=== PATIENT | female | born 1995 | race Caucasian/White ===

== ENCOUNTER 2018-09-17 16:14 | Emergency (ER) | payer OTHER ==
[2018-09-17] MEDS ORDERED: ONDANSETRON DISINTEGRATING 4 MG TAB PO ONE (16:20)
[2018-09-17] MEDS ORDERED: NS 1,000 ML IV ONE (16:40)
--- NOTE | 2018-09-17 16:40 | EDPHY ---
H & P Stated Complaint: n/v abd pain Time Seen by Provider: 09/17/18 16:40 HPI/ROS: CHIEF COMPLAINT: Vomiting, abdominal pain HISTORY OF PRESENT ILLNESS: The patient presents the ED with 1 day history of vomiting and abdominal pain. The patient's symptoms began when she woke up today. She did report drinking heavily last night. The patient does have a history of type 2 diabetes and takes glipizide. The patient denies prior history of abdominal pathology. She denies any hematemesis or melena. She reports associated bilious vomiting. She complains of associated generalized abdominal pain which she characterizes as severe in nature. The patient denies any additional acute complaints of fever, cough or congestion. She has no acute neurologic complaints. She denies skin rash. REVIEW OF SYSTEMS: A comprehensive 10 point review of systems is otherwise negative aside from elements mentioned in the history of present illness. Source: Patient - Personal History LMP (Females 10-55): Now Current Tetanus Diphtheria and Acellular Pertussis (TDAP): Unsure - Medical/Surgical History Hx Asthma: No Hx Chronic Respiratory Disease: No Hx Diabetes: No Hx Cardiac Disease: No Hx Renal Disease: No Hx Cirrhosis: No Hx Alcoholism: No Hx HIV/AIDS: No Hx Splenectomy or Spleen Trauma: No Other PMH: denies - Social History Smoking Status: Never smoked - Physical Exam Exam: General Appearance: Thin female, retching, appears uncomfortable Eyes: Pupils equal and round no pallor or injection ENT, Mouth: Mucous membranes moist Respiratory: There are no retractions, lungs are clear to auscultation Cardiovascular: Regular rate and rhythm Gastrointestinal: Generalized abdominal tenderness, poorly localized, no peritoneal signs, normal bowel sounds Neurological: 5/5 strength noted all 4 extremities Skin: Warm and dry, no rashes Musculoskeletal: Neck is supple nontender Extremities: symmetrical, full range of motion Psychiatric: Patient is oriented X 3, there is no agitation Constitutional: Initial Vital Signs Temperature (C) 36.3 C 09/17/18 16:17 Heart Rate 99 09/17/18 16:17 Respiratory Rate 22 H 09/17/18 16:17 Blood Pressure 115/69 09/17/18 16:17 O2 Sat (%) 100 09/17/18 16:17 O2 Delivery Mode Room Air Allergies/Adverse Reactions: amoxicillin Allergy (Verified 09/17/18 16:16) Home Medications: Medication Instructions Recorded MIRENA 09/17/18 Medical Decision Making - Diagnostics Imaging Results: Imaging Impressions Abdomen CT 09/17/18 18:26 Impression: Normal CT abdomen and pelvis. No evidence for appendicitis. Findings discussed with Jose Miguel Abdullahi M.D. at 19:43 hour, 09/17/2018. ED Course/Re-evaluation: The patient presents the ED with acute abdominal pain and intractable vomiting. This appears to be precipitated by heavy alcohol consumption last night. The patient arrived and was noted to have tenderness to palpation which was vague. Workup in the emergency department consisted of a CBC which demonstrates a leukocytosis of 16,000. The patient's metabolic panel is within normal limits. The patient's lipase is normal. The patient was treated with IV Zofran and Ativan. She received normal saline. Patient continued to have pain and was treated with IV narcotics. I re-evaluated the patient and found ongoing abdominal tenderness which seems to be localized to the right lower quadrant. For this reason a CT scan of the abdomen pelvis was ordered. 8:00 p.m.: CT scan of the abdomen and pelvis was reviewed by myself and discussed with radiologist Dr. Lora. No evidence of a intra-abdominal process noted. I re-evaluated the patient at 8:30 a.m. She is feeling much better at this point time. She is tolerating p.o. without vomiting. I do feel that she can be discharged home with a prescription for Zofran. She is advised to return to the ED for markedly worsening pain or other concerns. Differential Diagnosis: Differential diagnosis considered includes alcoholic gastritis, gastroenteritis , pancreatitis, appendicitis, perforation, obstruction - Data Points Laboratory Results: Laboratory Results 09/17/18 17:00 09/17/18 17:00 09/17/18 09/17/18 09/17/18 17:00 17:00 17:00 WBC 16.88 10^3/uL H 10^3/uL (3.80-9.50) RBC 5.15 10^6/uL 10^6/uL (4.18-5.33) Hgb 15.3 g/dL g/dL (12.6-16.3) Hct 44.3 % % (38.0-47.0) MCV 86.0 fL fL (81.5-99.8) MCH 29.7 pg pg (27.9-34.1) MCHC 34.5 g/dL g/dL (32.4-36.7) RDW 12.2 % % (11.5-15.2) Plt Count 399 10^3/uL 10^3/uL (150-400) MPV 8.8 fL fL (8.7-11.7) Neut % (Auto) 90.8 % H % (39.3-74.2) Lymph % (Auto) 6.4 % L % (15.0-45.0) [place] % (Auto) 2.1 % L % (4.5-13.0) Eos % (Auto) 0.0 % L % (0.6-7.6) Baso % (Auto) 0.2 % L % (0.3-1.7) Nucleat RBC Rel Count 0.0 % % (0.0-0.2) Absolute Neuts (auto) 15.32 10^3/uL H 10^3/uL (1.70-6.50) Absolute Lymphs (auto) 1.08 10^3/uL 10^3/uL (1.00-3.00) Absolute Monos (auto) 0.36 10^3/uL 10^3/uL (0.30-0.80) Absolute Eos (auto) 0.00 10^3/uL L 10^3/uL (0.03-0.40) Absolute Basos (auto) 0.04 10^3/uL 10^3/uL (0.02-0.10) Absolute Nucleated RBC 0.00 10^3/uL 10^3/uL (0-0.01) Immature Gran % 0.5 % % (0.0-1.1) Immature Gran # 0.08 10^3/uL 10^3/uL (0.00-0.10) Sodium 139 mEq/L mEq/L (135-145) Potassium 4.0 mEq/L mEq/L (3.5-5.2) Chloride 104 mEq/L mEq/L (97-110) Carbon Dioxide 16 mEq/l L mEq/l (22-31) Anion Gap 19 mEq/L H mEq/L (6-14) BUN 15 mg/dL mg/dL (7-23) Creatinine 0.7 mg/dL mg/dL (0.6-1.0) Estimated GFR > 60 Glucose 178 mg/dL H mg/dL (70-100) Calcium 9.8 mg/dL mg/dL (8.5-10.4) Total Bilirubin 1.0 mg/dL mg/dL (0.1-1.4) Conjugated Bilirubin 0.4 mg/dL mg/dL (0.0-0.5) Unconjugated Bilirubin 0.6 mg/dL mg/dL (0.0-1.1) AST 74 IU/L H IU/L (14-46) ALT 61 IU/L H IU/L (9-52) Alkaline Phosphatase 91 IU/L IU/L (38-126) Total Protein 8.1 g/dL g/dL (6.3-8.2) Albumin 5.1 g/dL H g/dL (3.5-5.0) Lipase 80 IU/L IU/L (23-300) Beta HCG, Qual NEGATIVE Medications Given: Discontinued Medications Hydromorphone HCl (Dilaudid) 0.5 mg IVP EDNOW ONE Stop: 09/17/18 18:27 Last Admin: 09/17/18 18:56 Dose: 0.5 mg Sodium Chloride (Ns) 1,000 mls @ 0 mls/hr IV EDNOW ONE; Wide Open PRN Reason: Protocol Stop: 09/17/18 16:41 Last Admin: 09/17/18 17:07 Dose: 1,000 mls Famotidine/Sodium Chloride (Pepcid 20 Mg (Premix)) 50 mls @ 200 mls/hr IV EDNOW ONE Stop: 09/17/18 17:09 Last Admin: 09/17/18 17:07 Dose: 50 mls Ondansetron HCl (Zofran Odt) 4 mg PO EDNOW ONE Stop: 09/17/18 16:21 Last Admin: 09/17/18 16:25 Dose: 4 mg Ondansetron HCl (Zofran) 4 mg IVP EDNOW ONE Stop: 09/17/18 16:56 Last Admin: 09/17/18 17:07 Dose: 4 mg Departure - Departure Disposition: Home, Routine, Self-Care Clinical Impression: Abdominal pain, Vomiting, Dehydration Condition: Good Instructions: Acute Nausea and Vomiting (ED) Additional Instructions: 1. Zofran as needed for nausea and vomiting 2. Return to the ED for markedly worsening pain or other concerns.
[2018-09-17] MEDS ORDERED: ONDANSETRON 4 MG/2 ML VIAL IVP ONE (16:55)
[2018-09-17] MEDS ORDERED: FAMOTIDINE 20 MG/NACL 50 ML IV ONE (16:55)
[2018-09-17 17:15] LABS: PLATELET COUNT 399 10^3/uL (150-400)
[2018-09-17] MEDS ORDERED: HYDROmorphONE/DILAUDID 2 MG/ML INJ IVP ONE (18:26)
[2018-09-17] MEDS ORDERED: IOPAMIDOL (ISOVUE-300) 100 ML BTL ONE (18:29)
[2018-09-17 19:31] VITALS: BP 130/89
[2018-09-17] MEDS ORDERED: ONDANSETRON 4MG PREPACK#2 BTL TAKEHOME ONE (20:04)
== END 2018-09-17 20:16 | disposition home or self-care (01) ==
DX: R11.10 Vomiting, unspecified (principal); R10.9 Unspecified abdominal pain; E86.9 Volume depletion, unspecified; E11.9 Type 2 diabetes mellitus without complications; Z88.0 Allergy status to penicillin; Z97.5 Presence of (intrauterine) contraceptive device
CPT/HCPCS: 96374; J1170; J2405; Q9967